=== PATIENT | male | born 1950 | race Caucasian/White ===

== ENCOUNTER → 2018-08-12 | Outpatient (CLI) | payer MEDICARE ==
[~2018-08-12] MED LIST: ATOR20TA PO; CALC625T23 PO; CARI350T PO; DICL112S2 TP; FAMO40TA61 PO; FENO145T32 PO; FISH OIL PO; GLUC1CAP40 PO; LISI-170 PO; MELA3TAB2 PO; MELO15TA6 PO; MULT-516 PO; SHARK LIVER OIL PO; TAMS-11 PO; VITAMIN E PO; [UNRECOGNIZED DRUG - OTHER] PO
[2018-08-12 14:14] LABS: MICROSCOPIC NOT IND
[2018-08-12 14:15] LABS: ALANINE AMINOTRANSFERASE 35 U/L (12-78); ALBUMIN 3.8 g/dL (3.4-5.0); ANION GAP 9 mmol/L (5-15); CALCIUM 9.5 mg/dL (8.5-10.1); CHLORIDE 111 mmol/L (98-107)
[2018-08-12 14:22] LABS: ALKALINE PHOSPHATASE 47 U/L (45-117); BILIRUBIN,TOTAL 0.6 mg/dL (0.2-1.0); CREATININE 1.43 mg/dL (0.7-1.3); TOTAL PROTEIN 6.9 g/dL (6.4-8.2)
== END | disposition home or self-care (01) ==
LOC: STAR 13:03
PROVIDERS: ATTEND Urology
DX: Z01.818 Encounter for other preprocedural examination (principal); N20.2 Calculus of kidney with calculus of ureter
CPT/HCPCS: 36415; 80053; 81003; 87086; 93005

== ENCOUNTER 2018-08-24 09:01 | Day surgery (SDC) | payer MEDICARE ==
[~2018-08-24] VITALS: Ht 180.3 cm; Wt 100.5 kg
[~2018-08-24 09:01] MED LIST changes: +CIPROFLOXACIN/PMX 400MG/200ML 200 ML ONE
[2018-08-24 09:30] VITALS: BP 112/78
[2018-08-24] MEDS ORDERED: LACTATED RINGERS 1,000 ML IV SCH (09:30)
[2018-08-24] MEDS ORDERED: HYDROmorphone 1 MG/ML, 1ML IV PRN (10:00)
[2018-08-24] MEDS ORDERED: LABETALOL 5MG/ML, 20ML IV PRN (10:00)
[2018-08-24] MEDS ORDERED: hydrALAzine 20 MG/ML, 1ML IV PRN (10:00)
[2018-08-24] MEDS ORDERED: MEPERIDINE/PF 25MG/0.5ML IVPush PRN (10:00)
[2018-08-24] MEDS ORDERED: FENTANYL PF 100 MCG/2ML IV PRN (10:00)
[2018-08-24] MEDS ORDERED: OXYcodone 5 MG/5 ML ORAL.SOL UDC PO PRN (10:00)
[2018-08-24] MEDS ORDERED: PROCHLORPERAZINE 5 MG/ML, 2ML IV PRN (10:00)
[2018-08-24] MEDS ORDERED: HALOPERIDOL 5 MG/ML IV PRN (10:00)
[2018-08-24] MEDS ORDERED: ACETAMINOPHEN 325 MG TABLET PO PRN (10:00)
[2018-08-24] MEDS ORDERED: DIPHENHYDRAMINE 50 MG/ML, 1ML IVPush PRN (10:00)
[2018-08-24] MEDS ORDERED: FENTANYL PF 100 MCG/2ML ONE (11:58)
[2018-08-24] MEDS ORDERED: PROPOFOL 10 MG/ML, 20ML ONE (12:21)
[2018-08-24] MEDS ORDERED: ONDANSETRON 2MG/ML, 2ML ONE (12:21)
[2018-08-24] MEDS ORDERED: CEFAZOLIN 1,000 MG ONE (12:21)
[2018-08-24] MEDS ORDERED: DEXAMETHASONE 4 MG/ML, 1ML ONE (12:21)
== END 2018-08-24 17:00 | disposition home or self-care (01) ==
LOC: OUT 09:01
PROVIDERS: ATTEND Urology
DX: N20.0 Calculus of kidney (principal); I10 Essential (primary) hypertension; E78.5 Hyperlipidemia, unspecified; Z88.1 Allergy status to other antibiotic agents; Z88.8 Allergy status to other drugs, medicaments and biological substances
CPT/HCPCS: 50590; J0690; J0744; J1100; J2405; J2704; J3010; J7120